=== PATIENT | female | born 1950 | race Caucasian/White ===

== ENCOUNTER 2018-09-14 13:01 | Emergency (ER) | payer MEDICARE ==
[~2018-09-14] VITALS: Ht 165.1 cm; Wt 86.2 kg
[~2018-09-14 13:01] MED LIST: CLIN300 PO; KETO10 PO
[2018-09-14] MEDS ORDERED: Vibramycin100 MG PO (13:45)
== END 2018-09-14 14:14 | disposition home or self-care (01) ==
LOC: ER 13:01
DX: H60.92 Unspecified otitis externa, left ear (principal); J32.9 Chronic sinusitis, unspecified; Z88.0 Allergy status to penicillin; Z88.2 Allergy status to sulfonamides; Z79.899 Other long term (current) drug therapy
CPT/HCPCS: 99283; J1100

== ENCOUNTER 2018-09-19 16:23 | Emergency (ER) | payer MEDICARE ==
[~2018-09-19] VITALS: Ht 162.6 cm; Wt 86.2 kg
[~2018-09-19 16:23] MED LIST changes: +Vibramycin100 MG PO
[2018-09-19] MEDS ORDERED: Maxidex15 ML LEFTEAR (18:13)
== END 2018-09-19 18:22 | disposition home or self-care (01) ==
LOC: ER 16:23
DX: H60.92 Unspecified otitis externa, left ear (principal); Z88.0 Allergy status to penicillin; Z88.2 Allergy status to sulfonamides
CPT/HCPCS: 99282